=== PATIENT | female | born 1985 | race Asian ===

== ENCOUNTER 2017-02-25 02:36 | Emergency (ER) | payer OTHER ==
[~2017-02-25] VITALS: Ht 147.3 cm; Wt 47.6 kg
[2017-02-25] MEDS ORDERED: ALBU17IN INH (02:50)
[2017-02-25] MEDS ORDERED: AMIT8CAP4 PO (02:50)
[2017-02-25] MEDS ORDERED: AMBI6.25 PO (02:50)
[2017-02-25] MEDS ORDERED: [UNRECOGNIZED DRUG - OTHER] (02:51)
[2017-02-25] MEDS ORDERED: KETOROLAC 60 MG/2 ML VIAL (J1885) IM ONE (04:15)
[2017-02-25] MEDS ORDERED: IBUP80TA PO (04:18)
[2017-02-25 04:54] VITALS: BP 92/61
== END 2017-02-25 05:00 | disposition home or self-care (01) ==
LOC: M ED 03:35
DX: M65.4 Radial styloid tenosynovitis [de Quervain] (principal); M54.9 Dorsalgia, unspecified; K58.9 Irritable bowel syndrome, unspecified; J45.909 Unspecified asthma, uncomplicated
CPT/HCPCS: 96372; 99282; J1885

== ENCOUNTER 2018-01-07 07:27 | Emergency (ER) | payer OTHER ==
[2018-01-07] MEDS ORDERED: LIDOCAINE 1% MDV 20ML VIAL As Ordered (07:48)
[2018-01-07] MEDS: LIDOCAINE 1% MDV 20ML VIAL IM (07:57)
== END 2018-01-07 10:45 | disposition home or self-care (01) ==
LOC: M ED 07:27
DX: O9A.212 Injury, poisoning and certain other consequences of external causes complicating pregnancy, second trimester (principal); T76.11XA Adult physical abuse, suspected, initial encounter; O99.89 Other specified diseases and conditions complicating pregnancy, childbirth and the puerperium; R10.31 Right lower quadrant pain; O99.712 Diseases of the skin and subcutaneous tissue complicating pregnancy, second trimester; L03.90 Cellulitis, unspecified; O99.512 Diseases of the respiratory system complicating pregnancy, second trimester; J45.909 Unspecified asthma, uncomplicated; O99.342 Other mental disorders complicating pregnancy, second trimester; F33.9 Major depressive disorder, recurrent, unspecified; F41.9 Anxiety disorder, unspecified; Z3A.19 19 weeks gestation of pregnancy; Z79.899 Other long term (current) drug therapy; Z86.79 Personal history of other diseases of the circulatory system
CPT/HCPCS: 76811

== ENCOUNTER → 2018-03-11 | Outpatient (CLI) | payer OTHER | LOC: M LDO 22:39 | DX: O47.03 False labor before 37 completed weeks of gestation, third trimester (principal); O99.343 Other mental disorders complicating pregnancy, third trimester; F41.0 Panic disorder [episodic paroxysmal anxiety]; Z3A.28 28 weeks gestation of pregnancy | CPT/HCPCS: 59025 ==

== ENCOUNTER 2018-03-27 11:32 | Outpatient (CLI) | payer OTHER | END 2018-03-27 12:55 | disposition home or self-care (01) | LOC: M LDI 11:32 → M LDO 11:32 | DX: O47.03 False labor before 37 completed weeks of gestation, third trimester (principal); Z3A.30 30 weeks gestation of pregnancy | CPT/HCPCS: 59025 ==

== ENCOUNTER 2018-05-12 06:37 | Inpatient (IN) | payer OTHER ==
[2018-05-12] MEDS: AMPICILLIN SOD/SULBACTAM SOD 3 GM in D5W MINI-BAG PLUS 100 ML IV ×4 (06:00→18:00)
[2018-05-12] MEDS: LACTATED RINGER'S 1000 ML IV (09:33)
[2018-05-12 10:20] LABS: HEMATOCRIT 30.9 % (36.0-47.0); HEMOGLOBIN 10.5 g/dl (12.0-15.5); MEAN CORPUSCULAR VOLUME 85.4 fl (80.0-96.0); PLATELET COUNT, AUTOMATED 339 10^3/uL (150-450); RED BLOOD COUNT 3.62 10^6/uL (4.00-5.40); RED CELL DISTRIBUTION WIDTH 12.7 % (11.5-14.5); WHITE BLOOD COUNT 14.2 10^3/uL (4.0-10.0)
[2018-05-12] MEDS: PROMETHAZINE INJ 25 MG/ML VIAL (J2550) IV (10:28)
[2018-05-12] MEDS: NALBUPHINE HCL 10 MG/ML AMP (J2300) IV (10:29)
[2018-05-12] MEDS: NALBUPHINE HCL 10 MG/ML AMP (J2300) IM (10:29)
[2018-05-12] MEDS: LR 1,000 ML IV ×3 (10:43→20:27)
[2018-05-12] MEDS ORDERED: FENTANYL 2MCG/ML ROPIVACAINE 0.2% IN 0.9% NACL 200ML IVBAG As Ordered (14:29)
[2018-05-12] MEDS ORDERED: EPIDURAL COMMENT XX (16:00)
[2018-05-12] MEDS ORDERED: NALOXONE INJ 0.4 MG/1 ML VIAL (J2310) IV (16:00)
[2018-05-12] MEDS ORDERED: ePHEDrine SULFATE 25 MG/5 ML(5MG/ML) SYRINGE IV (16:00)
[2018-05-12] MEDS ORDERED: diphenhydrAMINE INJ 50MG/ML VIAL (J1200) IV (16:00)
[2018-05-12] MEDS: FENTANYL/ROPIVACAINE/NACL BAG 200 ML EPIDURAL (16:00)
[2018-05-12] MEDS ORDERED: EPIDURAL/PCA KEYS XX (16:00)
[2018-05-12] MEDS ORDERED: REFRIGERATOR IV KEYS XX (16:00)
[2018-05-12] MEDS ORDERED: LACTATED RINGER'S 1000 ML IV (16:00)
[2018-05-12] MEDS ORDERED: ONDANSETRON 4MG/2ML VIAL (J2405) IV (16:00)
[2018-05-12] MEDS ORDERED: OXYTOCIN DRIP 30 UNITS in APPROPRIATE DILUENT 1 EA IV (20:30)
[2018-05-12] MEDS ORDERED: ACETAMINOPHEN TAB 650MG DOSE (2X325MG) As Ordered (20:34)
[2018-05-12] MEDS: ACETAMINOPHEN TAB 650MG DOSE (2X325MG) PO (20:42)
[2018-05-12] MEDS ORDERED: UNASYN 3 GM VIAL As Ordered (22:30)
[2018-05-13] MEDS: AMPICILLIN SOD/SULBACTAM SOD 3 GM in D5W MINI-BAG PLUS 100 ML IV
[2018-05-13] MEDS: OXYTOCIN DRIP 30 UNITS in APPROPRIATE DILUENT 1 EA IV (02:20)
[2018-05-13 02:27] LABS: CORD GAS ABE V -4.9; CORD GAS HCO3 V 21.5 MEQ/L; CORD GAS O2 SAT V 67.7 %; CORD GAS PCO2 V 44.9 mmHg; CORD GAS PH V 7.299 UNITS; CORD GAS PO2 V 28.9 mmHg; CORD GAS SBC V 19.8 MEQ/L; CORD GAS TCO2 V 22.9 MEQ/L
[2018-05-13] MEDS ORDERED: METOCLOPRAMIDE INJ 10MG/2ML VIAL (J2765) IV (02:30)
[2018-05-13] MEDS ORDERED: DIBUCAINE 1% OINTMENT 30GM TOP (02:30)
[2018-05-13] MEDS: IBUPROFEN 800 MG TAB PO ×3 (04:08→21:58)
[2018-05-13] MEDS: ACETAMINOPHEN TAB 650MG DOSE (2X325MG) PO (04:10)
[2018-05-13] MEDS: DOCUSATE SODIUM 100 MG CAP PO ×2 (08:41→21:58)
[2018-05-13] MEDS: PRENATAL VITAMINS CHEWABLE TABLET PO (08:42)
[2018-05-13] MEDS: RHOGAM 300 MCG (1500 IU) INJ (J2790) IM (11:19)
[2018-05-13] MEDS: MEASLES,MUMPS,RUBELLA VACCINE INJ (MMR-II) (90707) SC (11:20)
[2018-05-14] MEDS: PRENATAL VITAMINS CHEWABLE TABLET PO (08:51)
[2018-05-14] MEDS: IBUPROFEN 800 MG TAB PO ×2 (08:52→21:27)
[2018-05-14] MEDS: DOCUSATE SODIUM 100 MG CAP PO ×2 (08:52→21:27)
[2018-05-15] MEDS: PRENATAL VITAMINS CHEWABLE TABLET PO (07:54)
[2018-05-15] MEDS: DOCUSATE SODIUM 100 MG CAP PO (07:54)
== END 2018-05-15 10:35 | disposition home or self-care (01) | DRG 775 ==
LOC: M LDO 06:37 → M OBS 05-13 06:24 → M LDI 09:31
PROVIDERS: Obstetrics & Gynecology
PROC: 10D07Z6 Extraction of Products of Conception, Vacuum, Via Natural or Artificial Opening (ICD-10-PCS; principal; 2018-05-12)
PROC: 0HQ9XZZ Repair Perineum Skin, External Approach (ICD-10-PCS; 2018-05-12)
DX: O76 Abnormality in fetal heart rate and rhythm complicating labor and delivery (principal); Z37.0 Single live birth; Z3A.37 37 weeks gestation of pregnancy; O09.523 Supervision of elderly multigravida, third trimester; O70.0 First degree perineal laceration during delivery